=== PATIENT | male | born 1930 | race African-American/Black ===

== ENCOUNTER 2017-07-17 06:11 | Inpatient (IN) | payer MEDICARE, OTHER ==
[~2017-07-17] VITALS: Ht 172.7 cm; Wt 80.3 kg
[2017-07-17 07:55] LABS: Basophils # (auto) 0 uL; Basophils % (auto) 0.1 % (0.0-2.0); CONDITION Y; Eosinophils # (auto) 0.1 uL; Eosinophils % (auto) 1.5 % (0.0-7.0); Hematocrit 37.8 % (41.0-53.0); Hemoglobin 12.9 g/dL (13.5-17.5); Lymphocytes # (auto) 0.7 uL; Mean Corpuscular Hemoglobin 32.3 pg (28.0-32.0); Mean Corpuscular Hgb Conc. 34.2 g/dL (32.0-36.0); Mean Corpuscular Volume 94.3 fL (80.0-100.0); Mean Platelet Volume 8.6 fL (7.4-10.4); Monocytes # (auto) 0.4 uL; Monocytes % (auto) 5.6 % (0.0-12.0); Neutrophils # (auto) 5.6 uL; Neutrophils % (auto) 82.8 % (37.0-80.0); Platelet Count (auto) 151 10^3/uL (140-450); Red Cell Distribution Width 13.4 % (11.6-16.0); White Blood Cell 6.7 10^3/uL (4.4-10.8)
[2017-07-17] MEDS ORDERED: SODIUM CHLORIDE 0.9% 1,000 ML IV ONE (08:06)
[2017-07-17 08:09] LABS: Albumin 3.8 g/dL (3.4-5.0); Anion Gap 8 (5-15); Blood Urea Nitrogen 13 mg/dL (7-18); Calcium 8.8 mg/dL (8.5-10.1); Carbon Dioxide 26 mmol/L (21-32); Chloride 104 mmol/L (98-107); Glucose 97 mg/dL (74-106); Potassium 3.6 mmol/L (3.5-5.1); Sodium 138 mmol/L (136-145)
[2017-07-17 08:11] LABS: Aspartate Aminotransferase 19 U/L (15-37); BUN/Creatinine Ratio 11.2; GFR African American 77 mL/min; GFR Non-African American 63 mL/min
[2017-07-17 08:15] LABS: Alkaline Phosphatase 47 U/L (45-117); Bilirubin, Total 0.8 mg/dL (0.2-1.0); Total Protein 7.4 g/dL (6.4-8.2)
[2017-07-17] MEDS ORDERED: PROMETHAZINE HCL 25 MG/ML 1ML IV PRN (08:15)
[2017-07-17] MEDS ORDERED: HYDROmorphone HCL 2 MG/ML VL IV ONE (08:15)
[2017-07-17] MEDS ORDERED: GASTROGRAFIN 30 ML SOL ONE (08:19)
[2017-07-17 08:51] LABS: Magnesium 2.3 mg/dL (1.6-2.6)
[2017-07-17 10:36] LABS: Urine Bilirubin Negative (Negative); Urine Blood Negative /uL (Negative); Urine Color Yellow (Yellow); Urine Glucose Normal (Normal); Urine Ketone Negative (Negative); Urine Nitrite Negative (Negative); Urine RBC 1 /hpf (0 - 3); Urine Urobilinogen Normal (Negative)
[2017-07-17] MEDS ORDERED: IOHEXOL 300 MG/ML 100ML BOTTLE IJ ONE (10:43)
[2017-07-17] MEDS ORDERED: cefTRIAXone 1GM/50ML D5W 50 ML IV ONE (13:30)
[2017-07-17] MEDS ORDERED: SODIUM CHLORIDE 0.9% 1,000 ML IV SCH (13:33)
[2017-07-17] MEDS ORDERED: cloNIDine HCL 0.1 MG TAB PO PRN (13:45)
[2017-07-17] MEDS ORDERED: NITROGLYCERIN 0.4 MG SL TAB SL PRN (13:45)
[2017-07-17] MEDS ORDERED: ONDANSETRON HCL 4 MG/2 ML VIAL IV PRN (13:45)
[2017-07-17] MEDS ORDERED: MORPHINE SULF INJ 2 MG/ML SYRINGE 1ML IV PRN ×2 (13:45)
[2017-07-17] MEDS: SODIUM CHLORIDE 0.9% 1,000 ML IV SCH ×3 (13:49→18:24)
[2017-07-17] MEDS: metroNIDAZOLE 500MG/100ML 100 ML IV SCH ×2 (14:30→21:21)
[2017-07-17 14:32] LABS: INR 1.04 (0.9-1.15); Prothrombin Time 11.3 sec (9.37-12.3)
[2017-07-17 14:52] VITALS: BP 120/60
[2017-07-17] MEDS ORDERED: TRAM50TA2 PO (15:16)
[2017-07-17] MEDS ORDERED: PRAV20TA3 PO (15:16)
[2017-07-17] MEDS ORDERED: TERA2CAP45 PO (15:16)
[2017-07-17] MEDS ORDERED: POTA10TA51 PO (15:45)
[2017-07-17] MEDS ORDERED: VERA240T17 PO (15:45)
[2017-07-17] MEDS ORDERED: BICA50TA7 PO (15:45)
[2017-07-17] MEDS ORDERED: HYDR-2551 PO (15:45)
[2017-07-17 18:40] VITALS: BP 117/67
[2017-07-17] MEDS: ACETAMINOPHEN 325 MG TAB PO PRN (18:50)
[2017-07-18 05:00] VITALS: BP 112/63
[2017-07-18 05:27] LABS: Basophils # (auto) 0 uL; Basophils % (auto) 0.1 % (0.0-2.0); CONDITION Y; Eosinophils # (auto) 0 uL; Lymphocytes # (auto) 0.8 uL; Lymphocytes % (auto) 8.9 % (10.0-50.0); Mean Corpuscular Hgb Conc. 34.3 g/dL (32.0-36.0); Mean Corpuscular Volume 93.3 fL (80.0-100.0); Mean Platelet Volume 8.5 fL (7.4-10.4); Monocytes # (auto) 0.4 uL; Monocytes % (auto) 4.5 % (0.0-12.0); Neutrophils # (auto) 7.6 uL; Neutrophils % (auto) 86.5 % (37.0-80.0); Platelet Count (auto) 165 10^3/uL (140-450); White Blood Cell 8.8 10^3/uL (4.4-10.8)
[2017-07-18] MEDS: metroNIDAZOLE 500MG/100ML 100 ML IV SCH ×3 (06:01→22:20)
[2017-07-18 06:04] LABS: Albumin 3.6 g/dL (3.4-5.0); BUN/Creatinine Ratio 14.3; Bilirubin, Total 0.9 mg/dL (0.2-1.0); Calcium 8.9 mg/dL (8.5-10.1); Potassium 3.3 mmol/L (3.5-5.1); Total Protein 6.9 g/dL (6.4-8.2)
[2017-07-18 07:49] VITALS: BP 131/56
[2017-07-18 08:00] VITALS: BP 131/56
[2017-07-18] MEDS: cefTRIAXone 1GM/50ML D5W 50 ML IV SCH (08:35)
[2017-07-18] MEDS ORDERED: ROCURONIUM 10MG/ML 10ML VIAL IV ONE (09:57)
[2017-07-18] MEDS ORDERED: KETOROLAC TROMETH 60MG/2ML VIAL IM ONE (09:57)
[2017-07-18] MEDS ORDERED: NEOSTIGMINE 1 MG/ML INJ (10mg/10ML VIAL) ONE (09:57)
[2017-07-18] MEDS ORDERED: GLYCOPYRROLATE 0.2 MG/ML 1ML VIAL ONE (09:57)
[2017-07-18] MEDS ORDERED: PROPOFOL 10 MG/ML 20 ML IV ONE (09:57)
[2017-07-18] MEDS ORDERED: SODIUM CHLORIDE LOCK 10 ML ONE (09:57)
[2017-07-18] MEDS ORDERED: fentaNYL CITRATE 100 MCG/2 ML VL ONE (09:57)
[2017-07-18] MEDS ORDERED: ONDANSETRON HCL 4 MG/2 ML VIAL ONE (09:57)
[2017-07-18] MEDS ORDERED: MIDAZOLAM HCL 1MG/1ML-2 ML VIAL ONE (09:57)
[2017-07-18] MEDS ORDERED: ETOMIDATE (2MG/ML) 20ML VIAL IV ONE (09:57)
[2017-07-18] MEDS ORDERED: BUPIVACAINE W/ EPINEPH 0.25% INJ 50ML MDV ONE (10:03)
[2017-07-18] MEDS ORDERED: BUPIVACAINE 0.25% INJ 50ML VIAL ONE (10:03)
[2017-07-18] MEDS ORDERED: LIDOCAINE W/ EPINEPHRINE 1 % INJ 30ML ONE (10:03)
[2017-07-18] MEDS ORDERED: ceFAZolin 1GM VL ONE (10:03)
[2017-07-18] MEDS ORDERED: LIDOCAINE 1% HCL (LOCAL ANESTH.) INJ 20ML MDV ONE (10:03)
[2017-07-18] MEDS ORDERED: BUPIVACAINE W/ EPINEPH 0.25% INJ 50ML MDV IJ ONE (10:30)
[2017-07-18] MEDS ORDERED: KETOROLAC TROMETH 30 MG/ML 1ML VIAL IV ONE (10:45)
[2017-07-18] MEDS ORDERED: METOCLOPRAMIDE HCL 5MG/ml INJ 2ml VIAL IV ONE (10:45)
[2017-07-18] MEDS ORDERED: HYDROmorphone HCL 2 MG/ML VL IV PRN (10:45)
[2017-07-18 12:00] VITALS: BP 121/74
[2017-07-18] MEDS ORDERED: POTASSIUM CHL 20 Meq TABLET PO ONE (14:30)
[2017-07-18] MEDS: SODIUM CHLORIDE 0.9% 1,000 ML IV SCH (15:21)
[2017-07-18 17:00] VITALS: BP 144/72
[2017-07-18 22:00] VITALS: BP 137/70
[2017-07-18] MEDS: ACETAMINOPHEN 325 MG TAB PO PRN (22:21)
[2017-07-19 05:30] VITALS: BP 136/69
[2017-07-19] MEDS: SODIUM CHLORIDE 0.9% 1,000 ML IV SCH ×2 (05:43→11:02)
[2017-07-19] MEDS: metroNIDAZOLE 500MG/100ML 100 ML IV SCH ×3 (06:25→21:27)
[2017-07-19 06:50] LABS: Basophils # (auto) 0 uL; Basophils % (auto) 0.1 % (0.0-2.0); CONDITION Y; Eosinophils # (auto) 0 uL; Hematocrit 36.5 % (41.0-53.0); Hemoglobin 12.5 g/dL (13.5-17.5); Lymphocytes # (auto) 0.9 uL; Lymphocytes % (auto) 6.7 % (10.0-50.0); Mean Corpuscular Hemoglobin 32.2 pg (28.0-32.0); Mean Corpuscular Hgb Conc. 34.4 g/dL (32.0-36.0); Mean Corpuscular Volume 93.8 fL (80.0-100.0); Mean Platelet Volume 8.7 fL (7.4-10.4); Monocytes # (auto) 0.9 uL; Monocytes % (auto) 6.7 % (0.0-12.0); Neutrophils # (auto) 11.3 uL; Neutrophils % (auto) 86.5 % (37.0-80.0); Platelet Count (auto) 159 10^3/uL (140-450); Red Cell Distribution Width 13.2 % (11.6-16.0)
[2017-07-19 07:03] LABS: BUN/Creatinine Ratio 19.4; Calcium 8.5 mg/dL (8.5-10.1); Potassium 3.9 mmol/L (3.5-5.1)
[2017-07-19 08:06] LABS: PSA Free 0.05 ng/mL; Prostate Specific Antigen 0.4 ng/mL (0.0-4.0)
[2017-07-19 09:00] VITALS: BP 139/77
[2017-07-19] MEDS: cefTRIAXone 1GM/50ML D5W 50 ML IV SCH (09:26)
[2017-07-19] MEDS: VERAPAMIL HCL 120 mg ER tab PO SCH (11:15)
[2017-07-19] MEDS: BICALUTAMIDE 50 MG TAB PO SCH (12:00)
[2017-07-19 13:00] VITALS: BP 152/70
[2017-07-19 15:01] LABS: Basophils # (auto) 0 uL; Basophils % (auto) 0.1 % (0.0-2.0); CONDITION Y; Eosinophils # (auto) 0 uL; Eosinophils % (auto) 0.4 % (0.0-7.0); Hematocrit 38.3 % (41.0-53.0); Hemoglobin 13.2 g/dL (13.5-17.5); Lymphocytes % (auto) 7.1 % (10.0-50.0); Mean Corpuscular Hemoglobin 32.1 pg (28.0-32.0); Mean Corpuscular Hgb Conc. 34.4 g/dL (32.0-36.0); Mean Corpuscular Volume 93.6 fL (80.0-100.0); Mean Platelet Volume 8.5 fL (7.4-10.4); Monocytes # (auto) 1.1 uL; Monocytes % (auto) 8.2 % (0.0-12.0); Neutrophils # (auto) 11.4 uL; Neutrophils % (auto) 84.2 % (37.0-80.0); Platelet Count (auto) 170 10^3/uL (140-450); Red Cell Distribution Width 13.4 % (11.6-16.0); White Blood Cell 13.6 10^3/uL (4.4-10.8)
[2017-07-19 16:55] VITALS: BP 121/86
[2017-07-19 22:00] VITALS: BP 133/70
[2017-07-19] MEDS ORDERED: TERAZOSIN HCL 1 MG CAP PO SCH (22:00)
[2017-07-19] MEDS ORDERED: PRAVASTATIN SODIUM 20 MG TAB PO SCH (22:00)
[2017-07-20] MEDS: SODIUM CHLORIDE 0.9% 1,000 ML IV SCH (01:20)
[2017-07-20 05:46] VITALS: BP 122/66
[2017-07-20] MEDS: metroNIDAZOLE 500MG/100ML 100 ML IV SCH (06:00)
[2017-07-20 07:01] LABS: Basophils # (auto) 0 uL; Basophils % (auto) 0.2 % (0.0-2.0); CONDITION Y; Eosinophils # (auto) 0.1 uL; Eosinophils % (auto) 0.9 % (0.0-7.0); Hematocrit 34.5 % (41.0-53.0); Hemoglobin 11.8 g/dL (13.5-17.5); Lymphocytes % (auto) 11.5 % (10.0-50.0); Mean Corpuscular Hgb Conc. 34.2 g/dL (32.0-36.0); Mean Corpuscular Volume 93.6 fL (80.0-100.0); Mean Platelet Volume 8.5 fL (7.4-10.4); Monocytes # (auto) 0.7 uL; Monocytes % (auto) 8.4 % (0.0-12.0); Neutrophils # (auto) 6.9 uL; Platelet Count (auto) 144 10^3/uL (140-450); White Blood Cell 8.7 10^3/uL (4.4-10.8)
[2017-07-20 08:30] VITALS: BP 105/60
[2017-07-20] MEDS: cefTRIAXone 1GM/50ML D5W 50 ML IV SCH (09:00)
[2017-07-20] MEDS ORDERED: PRAVACHOL 20 MG PO SCH (10:00)
[2017-07-20] MEDS: VERAPAMIL HCL 120 mg ER tab PO SCH (10:06)
[2017-07-20] MEDS: BICALUTAMIDE 50 MG TAB PO SCH (10:06)
[2017-07-20 12:10] VITALS: BP 137/75
[2017-07-20 12:30] VITALS: BP 135/66
[2017-07-20 13:04] VITALS: BP 137/75
[2017-07-20] MEDS ORDERED: LEVO500T21 PO (13:31)
[2017-07-20] MEDS ORDERED: METR500T PO (13:31)
[2017-07-20] MEDS ORDERED: metroNIDAZOLE 500 MG TAB PO SCH (14:00)
[2017-07-20 16:13] VITALS: BP 127/69
[2017-07-21] MEDS ORDERED: LEVOFLOXACIN 500 MG TAB PO SCH (10:00)
== END 2017-07-20 18:00 | DRG 352 ==
LOC: ER 06:11 → TELE 06:12 → TELE-E-ADS 14:36 → TELE-WESTW 18:49
PROVIDERS: ADMIT Internal Medicine; ATTEND Internal Medicine
PROC: 0YQ50ZZ Repair Right Inguinal Region, Open Approach (ICD-10-PCS; principal; 2017-07-18 10:09)
DX: K40.30 Unilateral inguinal hernia, with obstruction, without gangrene, not specified as recurrent (principal); D63.8 Anemia in other chronic diseases classified elsewhere; I12.9 Hypertensive chronic kidney disease with stage 1 through stage 4 chronic kidney disease, or unspecified chronic kidney disease; E87.6 Hypokalemia; N18.2 Chronic kidney disease, stage 2 (mild); D72.829 Elevated white blood cell count, unspecified; Z85.46 Personal history of malignant neoplasm of prostate
CPT/HCPCS: 36415; 71010; 74177; 80048; 80053; 81001; 83690; 83735; 84154; 84443; 84484; 85025; 85610; 87040; 87086; 88302; 93005; 93306; 96365; 96375; 97163; J0690; J0696; J1885; J2001; J2250; J2405; J2704; J3490